=== PATIENT | female | born 1990 | race Caucasian/White ===

== ENCOUNTER 2020-01-02 00:40 | Emergency (ER) | payer OTHER, SELFPAY ==
[2020-01-02 00:40] VITALS: BP 152/93; PULSE 78; PULSE 85; RESP 16; TEMP 36.4; O2SAT 100; BMI 22.3
--- NOTE | 2020-01-02 01:09 | EKG12_ITS ---
Test Reason : CP Blood Pressure : / mmHG Vent. Rate : 068 BPM Atrial Rate : 068 BPM P-R Int : 110 ms QRS Dur : 084 ms QT Int : 402 ms P-R-T Axes : 032 063 024 degrees QTc Int : 427 ms Sinus rhythm with sinus arrhythmia with short MA Otherwise normal ECG Confirmed by CASANDRA VALENTIN, TOBI ([id number]), editor index CRISTAL SUMMERS ([id number]) on 01/07/2020 11:18:54 AM Referred By: SAIRA Confirmed By:OLEG GUAJARDO MD
--- NOTE | 2020-01-02 01:12 | ED.VIS.GEN ---
History of Present Illness Chief Complaint: Chest Pain Informant: Patient Narrative: Patient stated that she started having anxiety in abnormal chest tightness in her chest and neck since yesterday. She realized that she did have a home to come back to. She went out to [place] to visit her brother and upon returning her landlord would let her return because she may have been exposed to coronavirus. She denies any exposure to coronavirus. She denies any symptoms of sickness. Since then she has had anxiety and feels like she is panicking. 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 Patient stated there is a history of blood clots in her family however she is never had anything like this. She denies any pulmonary embolism risk factors other than her recent flight. Denies any swelling in her legs. She is not on estrogen therapy. No past medical history other than panic attacks. Denies any cardiac or dissection risk factors. Current severity is mild. Past Medical History - Allergies and Home Meds Allergies/Adverse Reactions: Allergies No Known Allergies Allergy (Verified 01/02/20 00:43) Primary Care Physician: Eric Pat MD [Primary Care Provider] - Prior records reviewed: Yes Past Medical History: - - Anxiety Surgical History: - - Reviewed Lives: Alone Alcohol: None Drugs: None Review of Systems General: Denies: Chills, Fever, Sweats Eyes: Denies: Visual changes - bilaterally, Diplopia ENT: Denies: Rhinorrhea, Sore throat Cardiovascular: Reports: Chest pain. Denies: Palpitations Respiratory: Denies: Dyspnea, Cough, Dyspnea on exertion Gastrointestinal: Denies: Abdominal pain, Nausea, Vomiting, Diarrhea, Melena, Hematochezia Genitourinary: Denies: Dysuria, Hematuria, Frequency Musculoskeletal: Denies: Back pain, Extremity Pain Skin: Denies: Rash, Wounds Neurological: Denies: Headache, Weakness, Numbness Psych: Reports: Anxiety Physical Exam Vital Signs/Narrative: Vital Signs Temp Pulse Resp BP Pulse Ox 01/02/20 00:40 97.5 F L 85 16 152/93 H 100 General: Well nourished, Well developed, No Acute Distress Head: Normocephalic, Atraumatic Eyes: Perrl, EOMI ENT: Moist mucous membranes, No rhinorrhea Neck: Supple, Nontender Cardiovascular: Regular rate, Regular rhythm, No murmurs Respiratory: No distress, CTA bilaterally, Chest nontender Abdomen: Soft, Nontender, Nondistended, Normal bowel sounds Back: Nontender, Normal Inspection Extremities: Nontender, No edema Skin: Normal color, No rash Neurological: Alert, Oriented x3, Cranial nerves II-XII grossly intact, Normal Strength, Normal Sensation Psychological: Normal affect, Normal Mood Diagnostic/Tx/Re-eval - Medical Decision Making PE rule out criteria is negative. She has no positive categories. Her legs are completely normal. She is not tachycardic. Pulse ox is 100%. At this time EKG was obtained shows sinus rhythm at a rate of 68 with no ischemia or arrhythmia. KS is 110. No delta wave to suggest [id number]. I do not feel the patient needs a d-dimer. I offered her lab work and troponin levels and she declined this. I do not think she has acute coronary syndrome or dissection. I do not feel she needs further work-up. This is likely anxiety related from learning that she did have a place to stay. She feels the same. She stated she needed reassurance. She will be given 1 Ativan tablet to take when she gets home. We will follow-up as an outpatient. I feel this is anxiety ED Disposition - Plan for ED Patient: Disposition: Home or Assisted Living Diagnosis: Anxiety Instructions: Your Body's Response to Anxiety Referrals: Eric Pat MD [Primary Care Provider] -
[2020-01-02] MEDS: LORazepam 1 MG Tablet PO (01:23)
== END 2020-01-02 01:27 | disposition home or self-care (01) ==
LOC: ED 01:18
PROVIDERS: Emergency Provider Emergency Medicine
DX: F41.9 Anxiety disorder, unspecified (principal); R07.9 Chest pain, unspecified
CPT/HCPCS: 93005; 99283